=== PATIENT | male | born 1975 | race Hispanic/Latino ===

== ENCOUNTER 2019-04-25 11:40 | Emergency (ER) | payer OTHER ==
[~2019-04-25] VITALS: Ht 170.2 cm; Wt 83.0 kg
--- OUTSIDE RECORDS SUMMARY | 2019-04-25 11:42 | XMS REPORT | Clinical Summary ---
Author Author [facility] Organization [facility] Address Unknown Phone Unavailable Care Team Providers Care Chef Kitchen Manager Name Role Phone Nena Cage MD PCP Allergies No Known Allergies Medications End Date Status Medication Sig Dispensed Refills Start Date Active hydrOXYzine (ATARAX) 25 Take 1 tablet 30 tablet 0 mg tabletIndications: by mouth 8 Pruritus every 8 hours as needed for Itching. Active triamcinolone (KENALOG) Apply to rash 80 g 0 0.1 % on lower 8 ointmentIndications: Rash extremities and other nonspecific twice a day skin eruption, Pruritus for 7 days. Protect area from sun exposure.. Active ibuprofen (MOTRIN) 800 mg Take 1 tablet 30 tablet 0 tabletIndications: Sore by mouth 9 throat every 8 hours as needed for Pain Take with food. Active naproxen (NAPROSYN) 500 Take 1 tablet 30 tablet 0 mg tabletIndications: by mouth 2 9 Right leg pain times daily (with meals). 05/05/2019 Active tiZANidine (ZANAFLEX) 4 Take 1 tablet 30 tablet 0 mg tabletIndications: by mouth 9 Right leg pain every 6 hours as needed for up to 10 days for Muscle Spasms. 05/04/2018 Discontinued fluticasone (FLONASE) 50 Use 1 [place] 16 g 0 mcg/actuation nasal in each 5 sprayIndications: Viral nostril illness daily. 05/04/2018 Discontinued ibuprofen (MOTRIN) 800 mg Take 1 tablet 30 tablet 0 tabletIndications: Fever by mouth 5 every 8 hours as needed for Pain or Fever. 05/04/2018 Discontinued metoclopramide (REGLAN) Take 1 tablet 30 tablet 0 10 mg tabletIndications: by mouth 3 5 Post lumbar puncture times daily headache as needed for Pain. 05/04/2018 Discontinued ketoconazole (NIZORAL) 2 Apply to 60 g 2 % topical affected area 5 creamIndications: Tinea 2 times corporis daily. 05/04/2018 Discontinued fluticasone (FLONASE) 50 Use 1 [place] 16 g 0 mcg/actuation nasal in each 5 sprayIndications: Acute nostril bronchitis daily. 05/04/2018 Discontinued codeine-guaiFENesin Take 5 mL by 120 mL 0 (CHERATUSSIN AC) 10-100 mouth 3 times 5 mg/5 mL syrupIndications: daily as Acute bronchitis needed for Cough. 05/04/2018 Discontinued silver sulfADIAZINE Apply to 50 g 0 (SILVADENE) 1 % topical affected area 5 creamIndications: Burn 2 times daily. 05/04/2018 Discontinued ibuprofen (MOTRIN) 800 mg Take 1 tablet 60 tablet 0 tabletIndications: Burn by mouth 5 every 8 hours as needed for Pain. 05/04/2018 Discontinued multivitamin Take 1 tablet 30 tablet 0 tabletIndications: by mouth 6 Alcohol consumption binge daily. drinking, Hangover effect, uncomplicated 05/04/2018 Discontinued metoclopramide (REGLAN) Take 1 tablet 30 tablet 0 10 mg tabletIndications: by mouth 4 6 Alcohol consumption binge times daily. drinking, Hangover effect, uncomplicated 05/04/2018 Discontinued omeprazole (PRILOSEC) 20 Take 1 90 capsule 0 mg delayed release capsule by 7 capsuleIndications: mouth daily. Gastroesophageal reflux disease with esophagitis 05/04/2018 Discontinued acyclovir (ZOVIRAX) 400 Take 1 tablet 180 tablet 1 mg tabletIndications: by mouth 2 7 Recurrent genital herpes times daily. 05/09/2018 predniSONE (DELTASONE) 20 Take 2 10 tablet 0 mg tabletIndications: tablets by 8 Rash and other mouth daily nonspecific skin for 5 days. eruption, Pruritus 01/12/2019 azithromycin (ZITHROMAX) Take 2 6 Each 0 250 mg tabletIndications: tablets by 9 Acute upper respiratory mouth on the infection first day, then take one tablet every day for the next 4 days. 02/06/2019 cetirizine (ZYRTEC) 10 mg Take 1 tablet 30 tablet 1 tabletIndications: Nasal by mouth 9 congestion daily for 30 days. Active Problems Problem Noted Date Post lumbar puncture headache 03/13/2015 Overweight (BMI 25.0-29.9) 01/30/2015 Elevated LFTs 01/30/2015 Genital herpes, unspecified- on prophylaxis - since 200611/30/2012 Encounters Care Team Description Date Type Specialty Debbie Jaimes PA Right leg pain (Primary Dx); Language barrier 04/25/2019 Office Visit Family Practice Pradeep Pineda Interpretation 04/25/2019 Telephone 04/25/2019 Travel Isabel Walden MD Acute upper respiratory infection (Primary Dx); Nasal congestion; Sore throat 01/07/2019 Same Day Family Practice 01/07/2019 Travel Vrasha Marx NP Rash and other nonspecific skin eruption to bilateral lower extremities (Primary Dx); Pruritus 05/04/2018 Same Day Family Practice Harvey Arevalo Interpretation 05/04/2018 Telephone after 04/24/2018 Immunizations Name Administration Dates Next Due Acetaminophen 325mg Tab 03/01/2015 Bicillin La (Pen G 03/01/2015 Benzathine 2,400,000) Influenza Vaccine 01/07/2019 (Deferred: Other), 10/03/2016, 08/16/2015, 12/26/2014 (Deferred: Patient Refused), 11/24/2014 (Deferred: Other - pt to return when feeling better) Influenza, Nasal 10/22/2017 <Unspecified> SILVER SULFADIAZINE 1 % 06/12/2015 TOPICAL CREAM Tdap Tetanus, diphtheria, 12/08/2013 acellular pertussis Vaccine Family History Medical History Relation Name Comments Seizures Brother Relation Name Status Comments Brother Alive Brother Father Alive Maternal Grandfather Alive Maternal Grandmother Alive Mother Alive Paternal Grandfather Alive Paternal Grandmother Alive Sister Alive Social History Date Tobacco Use Types Packs/Day Years Used Quit: 06/09/2009 Former Smoker Cigarettes 0.5 5 Smokeless Tobacco: Never Used Tobacco Cessation: Counseling Given: No Drinks/Week oz/Week Comments Alcohol Use 6 Standard drinks or equivalent 3.0 social Yes Food Insecurity Answer Date Recorded Within the past 12 months, you worried that your Never true 11/05/2017 food would run out before you got money to buy more. Within the past 12 months, the food you bought Never true 11/05/2017 just didn't last and you didn't have money to get more. Sex Assigned at Date Recorded Not on file Industry Job Start Date Occupation Not on file Not on file Not on file Travel End Travel History Travel Start No recent travel history available. Last Filed Vital Signs Reading Time Taken Comments Vital Sign 119/81 04/25/2019 8:30 AM CDT Blood Pressure 52 04/25/2019 8:30 AM CDT Pulse 36.8 C (98.2 F) 04/25/2019 8:30 AM CDT Temperature 21 04/25/2019 8:30 AM CDT Respiratory Rate 100% 04/25/2019 8:30 AM CDT Oxygen Saturation - - Inhaled Oxygen Concentration 83.6 kg (184 lb 6.4 oz) 04/25/2019 8:30 AM CDT Weight 170.5 cm (5' 7.13") 04/25/2019 8:30 AM CDT Height 28.77 04/25/2019 8:30 AM CDT Body Mass Index Plan of Treatment Not on file Results Not on fileafter 04/24/2018 Insurance Type Payer Benefit Subscriber ID Effective Phone Address Plan / Dates Group [employer] xxxxxxxxxx 2018-P [phone] [facility] [address] [place] [address]
--- OUTSIDE RECORDS SUMMARY | 2019-04-25 11:42 | XMS REPORT ---
Author Author [facility] Address Unknown Phone Unavailable Care Team Providers Care Trim And Burr Operator Name Role Phone Unavailable Unavailable Problems This patient has no known problems. Allergies, Adverse Reactions, Alerts This patient has no known allergies or adverse reactions. Medications This patient has no known medications. Encounters Start Date/Time End Date/Time Encounter Type Admission Type Attending Clinicians Care Facility Care Department Encounter ID 2019-04-25 08:30:28 2019-04-25 08:30:28 Outpatient [facility] [id number]
[2019-04-25 12:28] LABS: BASOPHILS % 0.4 % (0.0-1.0); EOSINOPHILS # (AUTO) 0.1 (0.0-0.4); EOSINOPHILS % 1.3 % (0.0-6.0); HEMATOCRIT 42.4 % (38.2-49.6); LYMPHOCYTES # (AUTO) 1.7 (1.0-3.2); LYMPHOCYTES % 31.2 % (18.0-39.1); MEAN CORPUSCULAR HEMOGLOBIN 27.9 pg (28-32); MEAN CORPUSCULAR VOLUME 84.6 fL (81-99); MONOCYTES # (AUTO) 0.2 (0.2-0.8); MONOCYTES % 3.7 % (4.4-11.3); NEUTROPHILS # (AUTO) 3.4 (2.1-6.9); NEUTROPHILS % 63.2 % (38.7-80.0); PLATELET COUNT 202 x10e3/uL (140-360); RED BLOOD COUNT 5.01 x10e6/uL (4.3-5.7); RED CELL DISTRIBUTION WIDTH 13.3 % (11.7-14.4)
[2019-04-25 12:59] LABS: ALANINE AMINOTRANSFERASE 54 IU/L (0-55); ALBUMIN 4.3 g/dL (3.5-5.0); ALBUMIN/GLOBULIN RATIO 1.8 (0.8-2.0); ALKALINE PHOSPHATASE 79 IU/L (40-150); ANION GAP 12.2 mmol/L (8-16); BLOOD UREA NITROGEN 16 mg/dL (7-26); BUN/CREATININE RATIO 21 (6-25); CALCIUM 9.6 mg/dL (8.4-10.2); CARBON DIOXIDE 26 mmol/L (22-29); CHLORIDE 106 mmol/L (98-107); CREATINE KINASE 121 IU/L (30-200); CREATININE, SERUM 0.75 mg/dL (0.72-1.25); EST GLOMERULAR FILTRATION RATE > 60 ML/MIN (60-); GLUCOSE 101 mg/dL (74-118); POTASSIUM 4.2 mmol/L (3.5-5.1); SODIUM 140 mmol/L (136-145)
--- NOTE | 2019-04-25 13:51 | Diagnostic Imaging Report ---
EXAMINATION: CHEST 2 VIEWS INDICATION: Abnormal EKG. COMPARISON: None FINDINGS: TUBES and LINES: None. LUNGS: Lungs are moderately inflated. There is no evidence of pneumonia or pulmonary edema. PLEURA: No pleural effusion or pneumothorax. HEART AND MEDIASTINUM: The cardiomediastinal silhouette is unremarkable. BONES AND SOFT TISSUES: No acute osseous lesion. Soft tissues are unremarkable. UPPER ABDOMEN: No free air under the diaphragm. IMPRESSION: No acute radiographic abnormality. Signed by: Dr. Rissa Galo MD on 04/25/2019 1:48 PM
[2019-04-25 14:28] VITALS: BP 137/84
[2019-04-25] MEDS ORDERED: DEXAMETHASONE SOD PHOS 10 MG/1 ML VIAL IM ONE (14:30)
== END 2019-04-25 15:10 | disposition home or self-care (01) ==
LOC: ER 11:40
DX: R00.1 Bradycardia, unspecified (principal); M54.41 Lumbago with sciatica, right side
CPT/HCPCS: 36415; 71046; 80053; 82550; 82553; 84484; 85025; 93005; 99284; J1100